=== PATIENT | female | born 1940 | race Caucasian/White ===

== ENCOUNTER 2017-04-05 12:56 | Inpatient (IN) | payer MEDICARE, MEDICAID ==
[2017-04-05] MEDS ORDERED: Sodium Chloride 0.9% 1,000 ML IV SCH ×3 (13:45→16:15)
--- NOTE | 2017-04-05 13:54 | EDM.PDOC ---
ED HPI GENERAL MEDICAL PROBLEM - General Chief Complaint: Respiratory Problem Stated Complaint: MEDICAL VIA [facility] Time Seen by Provider: 04/05/17 13:00 Source of Information: Reports: EMS Notes Reviewed, Family History Limitations: Reports: No Limitations - History of Present Illness INITIAL COMMENTS - FREE TEXT/NARRATIVE: pt arrived unresponsive from [facility]. She has had chest congestion for the past 10 days. Onset: Gradual, Other ( Pt has had a fever for several days. ) Location: Reports: Chest Associated Symptoms: Reports: Fever/Chills, Other (pt has become unresponsive.) - Related Data Allergies Allergy/AdvReac Type Severity Reaction Status Date / Time exenatide [From By[place]] AdvReac Nausea and Verified 04/05/17 19:08 Vomiting Home Meds: Home Meds Aspirin [Halfprin] 81 mg PO DAILY 04/10/13 [History] Furosemide 40 mg PO BID 04/10/13 [History] Insulin Glargine,Hum.Rec.Anlog [Lantus] 14 units SQ BEDTIME 04/10/13 [History] Potassium Chloride 10 meq PO DAILY 04/10/13 [History] Pregabalin [Lyrica] 75 mg PO BID 04/10/13 [History] Raloxifene HCl [Evista] 60 mg PO DAILY 04/10/13 [History] atorvaSTATin [Lipitor] 20 mg PO BEDTIME 04/10/13 [History] metFORMIN [Glucophage] 500 mg PO TIDM 04/10/13 [History] Metoprolol Tartrate 12.5 mg PO BID 09/20/13 [History] Acetaminophen with Codeine [Tylenol with Codeine #3 Tablet] 1 tab PO BEDTIME [History] Allopurinol [Zyloprim] 300 mg PO DAILY 04/05/17 [History] Cholecalciferol (Vitamin D3) [Vitamin D3] 1,000 units PO BID 04/05/17 [History] Ciprofloxacin HCl [Cipro] 500 mg PO BID 04/05/17 [History] DULoxetine HCl [Duloxetine HCl] 60 mg PO BEDTIME 04/05/17 [History] Polyethylene Glycol 3350 [MiraLAX] 8.5 gm PO DAILY 04/05/17 [History] Ranitidine [Zantac] 150 mg PO BID 04/05/17 [History] fentaNYL [Duragesic] 25 mcg TOP Q72H 04/05/17 [History] Past Medical History HEENT History: Reports: Impaired Vision Cardiovascular History: Reports: Heart Valve Replacement, High Cholesterol, Hypertension Musculoskeletal History: Reports: Arthritis, Back Pain, Chronic Neurological History: Reports: CVA Psychiatric History: Reports: Depression Endocrine/Metabolic History: Reports: Diabetes, Type II - Past Surgical History GI Surgical History: Reports: Appendectomy, Cholecystectomy Social & Family History - Family History HEENT: Reports: Impaired Vision Cardiac: Reports: Bypass, Hypertension, [place] : Reports: Diabetic Nephropathy OBGYN: Reports: Musculoskeletal: Reports: Back pain, Chronic Neurological: Reports: Dementia Endocrine/Metabolic: Reports: Diabetes, type II - Tobacco Use Smoking Status *Q: Never Smoker Years of Tobacco use: 12 Packs/Tins Daily: 0.5 Used Tobacco, but Quit: Yes Month Tobacco Last Used: unknown Second Hand Smoke Exposure: No - Caffeine Use Caffeine Use: Reports: None - Alcohol Use Days Per Week of Alcohol Use: 0 - Recreational Drug Use Recreational Drug Use: No ED ROS GENERAL - Review of Systems Review Of Systems: See Below Constitutional: Reports: Fever, Chills, Other (pt became unresponsive. ) HEENT: Reports: Other (mucous membranes are very dry. ) Respiratory: Reports: Cough, Other ( congestion) Cardiovascular: Reports: No Symptoms Endocrine: Reports: No Symptoms GI/Abdominal: Reports: No Symptoms : Reports: No Symptoms Musculoskeletal: Reports: No Symptoms Skin: Reports: No Symptoms Neurological: Reports: Other (pt i not responding. ) Psychiatric: Reports: Other (pt is unresponsive.) Hematologic/Lymphatic: Reports: No Symptoms ED EXAM, GENERAL - Physical Exam Exam: See Below Free Text/Narrative:: pupils are small and slow to react. she will open her eyes but she does not respond otherwise. Exam Limited By: No Limitations General Appearance: Obtunded Ears: Normal TMs Nose: Normal Inspection Throat/Mouth: Normal Inspection Head: Atraumatic Neck: Normal Inspection Respiratory/Chest: Decreased Breath Sounds, Rhonchi Cardiovascular: Regular Rate, Rhythm, Tachycardia GI/Abdominal: Soft (Female) Exam: Deferred Rectal (Female) Exam: Deferred Back Exam: Normal Inspection Extremities: Other (pt has no sig edema. ) Neurological: Unresponsive Psychiatric: Other (pt is unresponsive. ) Course - Vital Signs Last Recorded V/S: Last Vital Signs Temp 35.8 C 04/08/17 07:21 Pulse 87 09/23/17 07:21 Resp 16 04/08/17 07:21 BP 147/95 H 04/08/17 07:21 Pulse Ox 98 04/08/17 07:21 - Orders/Labs/Meds Orders: Medication Orders Fentanyl (Duragesic) 25 mcg TOP Q72H [facility] Last Admin: 04/06/17 05:22 Dose: 25 mcg Levofloxacin/Dextrose 250 mg/ (Premix) 50 mls @ 50 mls/hr IV Q24H [facility] Last Admin: 04/07/17 19:35 Dose: 50 mls/hr Infusion: 04/06/17 20:46 Dose: 50 mls/hr Admin: 04/06/17 19:46 Dose: 50 mls/hr Infusion: 04/05/17 21:18 Dose: 50 mls/hr Admin: 04/05/17 20:18 Dose: 50 mls/hr Sodium Chloride (Normal Saline) 1,000 mls @ 125 mls/hr IV ASDIRECTED [facility] Last Admin: 04/08/17 04:04 Dose: 125 mls/hr Infusion: 04/08/17 02:41 Dose: 125 mls/hr Admin: 04/07/17 18:41 Dose: 125 mls/hr Infusion: 04/07/17 18:35 Dose: 125 mls/hr Admin: 04/07/17 10:35 Dose: 125 mls/hr Infusion: 04/07/17 09:31 Dose: 125 mls/hr Admin: 04/07/17 01:31 Dose: 125 mls/hr Infusion: 04/06/17 19:16 Dose: 125 mls/hr Admin: 04/06/17 11:16 Dose: 125 mls/hr Infusion: 04/06/17 09:58 Dose: 125 mls/hr Admin: 04/06/17 01:58 Dose: 125 mls/hr Ceftriaxone Sodium 1 gm/ (Sodium Chloride) 50 mls @ 100 mls/hr IV Q24H [facility] Last Admin: 04/07/17 20:30 Dose: 100 mls/hr Admin: 04/06/17 20:45 Dose: 100 mls/hr Fentanyl Patch Check 1 each TOP BID [facility] Last Admin: 04/07/17 20:30 Dose: Admin: 04/07/17 08:09 Dose: Labs: Laboratory Tests 04/05/17 04/05/17 04/05/17 Range/Units 14:11 14:20 14:20 WBC 17.3 H (4.5-11.0) K/uL RBC 4.94 (3.30-5.50) M/uL Hgb 14.6 D (12.0-15.0) g/dL Hct 46.2 (36.0-48.0) % MCV 94 (80-98) fL MCH 30 (27-31) pg MCHC 32 (32-36) % Plt Count 279 (150-400) K/uL Neut % (Auto) 60 (36-66) % Lymph % (Auto) 31 (24-44) % Worth % (Auto) 8 H (2-6) % Eos % (Auto) 0 L (2-4) % Baso % (Auto) 1 (0-1) % Puncture Site ABG pH (7.350-7.450) ABG pCO2 (35.0-42.0) mmHg ABG pO2 (75.0-100.0) mmHg ABG HCO3 (22.0-26.0) mmol/L ABG Total CO2 (21.0-25.0) mmol/L ABG O2 Saturation (95.0-98.0) % ABG O2 Content (15.0-23.0) %vol ABG Base Excess mm/L ABG Hemoglobin (12.0-16.0) g/dL ABG Oxyhemoglobin % ABG Carboxyhemoglobin (0.0-1.6) % ABG Methemoglobin % Cristiano Test O2 Delivery Device Oxygen Flow Rate L Sodium 151 H (140-148) mmol/L Potassium 3.8 (3.6-5.2) mmol/L Chloride 112 H (100-108) mmol/L Carbon Dioxide 30 (21-32) mmol/L Anion Gap 12.8 (5.0-14.0) mmol/L BUN 24 H (7-18) mg/dL Creatinine 0.7 (0.6-1.0) mg/dL Est Cr Clr Drug Dosing 52.77 mL/min Estimated GFR (MDRD) > 60 (>60) Glucose 172 H (74-106) mg/dL Lactic Acid 1.1 (0.4-2.0) mmol/L Calcium 8.7 (8.5-10.1) mg/dL Total Bilirubin 0.3 (0.2-1.0) mg/dL AST 16 (15-37) U/L ALT 20 (12-78) U/L Alkaline Phosphatase 59 (46-116) U/L Total Protein 7.8 (6.4-8.2) g/dL Albumin 3.0 L (3.4-5.0) g/dL Globulin 4.8 H (2.3-3.5) g/dL Albumin/Globulin Ratio 0.6 L (1.2-2.2) Urine Color Urine Appearance Urine pH (4.5-8.0) Ur Specific [place] (1.008-1.030) Urine Protein (NEGATIVE) mg/dL Urine Glucose (UA) (NEGATIVE) mg/dL Urine Ketones (NEGATIVE) mg/dL Urine Occult Blood (NEGATIVE) Urine Nitrite (NEGATIVE) Urine Bilirubin (NEGATIVE) Urine Urobilinogen (NORMAL) mg/dL Ur Leukocyte Esterase (NEGATIVE) Urine RBC (0-5) Urine WBC (0-5) Ur Epithelial Cells Amorphous Sediment Urine Bacteria Urine Mucus 04/05/17 04/05/17 Range/Units 14:20 15:25 WBC (4.5-11.0) K/uL RBC (3.30-5.50) M/uL Hgb (12.0-15.0) g/dL Hct (36.0-48.0) % MCV (80-98) fL MCH (27-31) pg MCHC (32-36) % Plt Count (150-400) K/uL Neut % (Auto) (36-66) % Lymph % (Auto) (24-44) % Worth % (Auto) (2-6) % Eos % (Auto) (2-4) % Baso % (Auto) (0-1) % Puncture Site Rt brachial ABG pH 7.485 H (7.350-7.450) ABG pCO2 38.3 (35.0-42.0) mmHg ABG pO2 93.5 (75.0-100.0) mmHg ABG HCO3 28.6 H (22.0-26.0) mmol/L ABG Total CO2 24.6 (21.0-25.0) mmol/L ABG O2 Saturation 97.5 (95.0-98.0) % ABG O2 Content 19.3 (15.0-23.0) %vol ABG Base Excess 5.3 mm/L ABG Hemoglobin 14.3 (12.0-16.0) g/dL ABG Oxyhemoglobin 95.6 % ABG Carboxyhemoglobin 1.5 (0.0-1.6) % ABG Methemoglobin 0.4 % Cristiano Test Not performed O2 Delivery Device Nasal cannula Oxygen Flow Rate 2 L Sodium (140-148) mmol/L Potassium (3.6-5.2) mmol/L Chloride (100-108) mmol/L Carbon Dioxide (21-32) mmol/L Anion Gap (5.0-14.0) mmol/L BUN (7-18) mg/dL Creatinine (0.6-1.0) mg/dL Est Cr Clr Drug Dosing mL/min Estimated GFR (MDRD) (>60) Glucose (74-106) mg/dL Lactic Acid (0.4-2.0) mmol/L Calcium (8.5-10.1) mg/dL Total Bilirubin (0.2-1.0) mg/dL AST (15-37) U/L ALT (12-78) U/L Alkaline Phosphatase (46-116) U/L Total Protein (6.4-8.2) g/dL Albumin (3.4-5.0) g/dL Globulin (2.3-3.5) g/dL Albumin/Globulin Ratio (1.2-2.2) Urine Color Yellow Urine Appearance Clear Urine pH 5.0 (4.5-8.0) Ur Specific [place] 1.020 (1.008-1.030) Urine Protein Negative (NEGATIVE) mg/dL Urine Glucose (UA) Normal (NEGATIVE) mg/dL Urine Ketones Negative (NEGATIVE) mg/dL Urine Occult Blood Large (NEGATIVE) Urine Nitrite Negative (NEGATIVE) Urine Bilirubin Negative (NEGATIVE) Urine Urobilinogen Normal (NORMAL) mg/dL Ur Leukocyte Esterase Negative (NEGATIVE) Urine RBC 20-30 H (0-5) Urine WBC 0-5 (0-5) Ur Epithelial Cells Few Amorphous Sediment Not seen Urine Bacteria Few Urine Mucus Numerous Meds: Medications Generic Name Dose Route Start Last Admin Trade Name Freq PRN Reason Stop Dose Admin Fentanyl 25 mcg 04/06/17 04:00 04/06/17 05:22 Duragesic TOP 25 mcg Q72H ISHMAEL Administration Levofloxacin/Dextrose 250 mg/ 50 mls @ 50 mls/hr 04/05/17 20:00 04/07/17 19: 35 Premix IV 50 mls/hr Q24H ISHMAEL Administration Sodium Chloride 1,000 mls @ 125 mls/hr 04/05/17 20:15 04/08/17 04:04 Normal Saline IV 125 mls/hr ASDIRECTED ISHMAEL Administration Ceftriaxone Sodium 1 gm/ 50 mls @ 100 mls/hr 04/06/17 21:00 04/07/17 20:30 Sodium Chloride IV 100 mls/hr Q24H ISHMAEL Administration Fentanyl Patch Check 1 each 04/07/17 09:00 04/07/17 20:30 TOP Not Given BID ISHMAEL Discontinued Medications Generic Name Dose Route Start Last Admin Trade Name Freq PRN Reason Stop Dose Admin Acetaminophen/Codeine Phosphate 1 tab 04/05/17 21:00 04/06/17 01:12 Tylenol With Codeine No.3 300mg/30mg PO Not Given BEDTIME [facility] Allopurinol 300 mg 04/06/17 09:00 04/06/17 11:17 Zyloprim PO Not Given DAILY [facility] Aspirin 81 mg 04/06/17 09:00 04/06/17 11:16 Halfprin PO Not Given DAILY [facility] Atorvastatin Calcium 20 mg 04/05/17 21:00 04/06/17 00:45 Lipitor PO Not Given BEDTIME [facility]HMAEL Ceftriaxone Sodium 1 gm 04/05/17 19:30 04/05/17 20:55 Rocephin IM Not Given Q24H [facility] Ceftriaxone Sodium 1 gm 04/05/17 21:00 04/05/17 21:24 Rocephin IV 1 gm Q24H [facility] Administration Cholecalciferol 1,000 units 04/05/17 21:00 04/06/17 11:17 Vitamin D3 PO Not Given BID [facility] Duloxetine HCl 60 mg 04/06/17 21:00 Cymbalta PO BEDTIME [facility]MAEL Sodium Chloride 1,000 mls @ 125 mls/hr 04/05/17 13:45 04/05/17 14:14 Normal Saline IV 999 mls/hr ASDIRECTED [facility]HMA[facility] Administration Sodium Chloride 1,000 mls @ 400 mls/hr 04/05/17 15:15 04/05/17 15:36 Normal Saline IV 400 mls/hr ASDIRECTED [facility]HMA[facility] Administration Sodium Chloride 1,000 mls @ 250 mls/hr 04/05/17 16:15 04/05/17 18:09 Normal Saline IV 250 mls/hr ASDIRECTED [facility] Administration Sodium Chloride Confirm 04/05/17 21:13 04/05/17 21:26 Normal Saline Administered 04/05/17 21:14 50 ml Dose Administration 50 mls @ as directed .ROUTE .STK-MED ONE Potassium Chloride 20 meq/ 112 mls @ 50 mls/hr 04/06/17 10:00 04/06/17 16:50 Lidocaine HCl 2 ml/ Sodium IV 04/06/17 15:59 50 mls/hr Chloride Q2H [facility] Administration Insulin Detemir 14 unit 04/05/17 21:00 04/06/17 00:43 Levemir SUBCUT 14 units BEDTIME [facility] Administration Insulin Detemir 14 unit 04/06/17 07:15 Levemir SUBCUT BEDTIME [facility] Metformin HCl 500 mg 04/06/17 08:00 04/06/17 17:52 Glucophage PO Not Given TIDMEALS [facility] Metoprolol Tartrate 12.5 mg 04/05/17 21:00 04/06/17 11:16 Lopressor PO Not Given BID [facility] Fentanyl Patch Check 1 each 04/06/17 09:00 04/06/17 09:18 TOP Not Given BID [facility] Polyethylene Glycol 8.5 gm 04/06/17 09:00 04/06/17 11:17 Miralax PO Not Given DAILY [facility] Potassium Chloride 10 meq 04/06/17 09:00 04/06/17 11:17 Potassium Chloride PO Not Given DAILY [facility] Pregabalin 75 mg 04/05/17 21:00 04/06/17 11:17 Lyrica PO Not Given BID [facility] Raloxifene HCl 60 mg 04/06/17 09:00 04/06/17 11:16 Evista PO Not Given DAILY [facility] Ranitidine HCl 150 mg 04/05/17 21:00 04/06/17 11:17 Zantac PO Not Given BID [facility] - Re-Assessments/Exams Free Text/Narrative Re-Assessment/Exam: 04/05/17 15:58 pt is on her second liter of fluid. She is opening her eyes. Her na is 151. Her urine does not show a definite infection. She does have a wbc of 17,000. She has had a chest infection for the pst 10 days and has been on antibiotics. Departure - Departure Time of Disposition: 16:01 Disposition: Admitted As Inpatient 65 Condition: Fair Clinical Impression: Pneumonia, Hypernatremia, Dehydration - Discharge Information
--- NOTE | 2017-04-05 14:49 | CR ---
Chest 1V Frontal INDICATION: fever FINDINGS: Comparison 04/10/2013. Shallow inspiration. Sternotomy. Cardiac valve replacement. New small left pleural effusion with infiltrate or atelectasis in the left lung base. Right lung clear. Diffus e osteopenia.
--- NOTE | 2017-04-05 17:53 | PCM.HP ---
H&P History of Present Illness - General Date of Service: 04/05/17 Source of Information: EMS, Skilled Nursing Records History Limitations: Reports: Altered Mental Status - History of Present Illness Initial Comments - Free Text/Narative: She has been in the [facility] and had bronchitis and given Cipro for 1 week. She has had no improvement and came into the ER this afternoon and was called for an admission. She has been bed ridden for many months. Onset of Symptoms: Reports: Gradual Duration of Symptoms: Reports: Day(s): Location: Reports: Chest Severity: Moderate Worsens with: Reports: Movement - Related Data Allergies/Adverse Reactions: Allergies Allergy/AdvReac Type Severity Reaction Status Date / Time exenatide [From Byetta] AdvReac Nausea and Verified 04/05/17 13:35 Vomiting Home Medications: Home Meds Aspirin [Halfprin] 81 mg PO DAILY 04/10/13 [History] Furosemide 40 mg PO BID 04/10/13 [History] Insulin Glargine,Hum.Rec.Anlog [Lantus] 14 units SQ BEDTIME 04/10/13 [History] Potassium Chloride 10 meq PO DAILY 04/10/13 [History] Pregabalin [Lyrica] 75 mg PO BID 04/10/13 [History] Raloxifene HCl [Evista] 60 mg PO DAILY 04/10/13 [History] atorvaSTATin [Lipitor] 20 mg PO BEDTIME 04/10/13 [History] metFORMIN [Glucophage] 500 mg PO TIDM 04/10/13 [History] Metoprolol Tartrate 12.5 mg PO BID 09/20/13 [History] Acetaminophen with Codeine [Tylenol with Codeine #3 Tablet] 1 tab PO BEDTIME [History] Allopurinol [Zyloprim] 300 mg PO DAILY 04/05/17 [History] Cholecalciferol (Vitamin D3) [Vitamin D3] 1,000 units PO BID 04/05/17 [History] Ciprofloxacin HCl [Cipro] 500 mg PO BID 04/05/17 [History] DULoxetine HCl [Duloxetine HCl] 60 mg PO BEDTIME 04/05/17 [History] Polyethylene Glycol 3350 [MiraLAX] 8.5 gm PO DAILY 04/05/17 [History] Ranitidine [Zantac] 150 mg PO BID 04/05/17 [History] fentaNYL [Duragesic] 25 mcg TOP Q72H 04/05/17 [History] Past Medical History HEENT History: Reports: Impaired Vision Cardiovascular History: Reports: Heart Valve Replacement, High Cholesterol, Hypertension Musculoskeletal History: Reports: Arthritis, Back Pain, Chronic, Osteoarthritis Neurological History: Reports: CVA Psychiatric History: Reports: Dementia, Depression Endocrine/Metabolic History: Reports: Diabetes, Type II, Obesity/BMI 30+ - Past Surgical History GI Surgical History: Reports: Appendectomy, Cholecystectomy Social & Family History - Family History HEENT: Reports: Impaired Vision Cardiac: Reports: Bypass, Hypertension, [place] : Reports: Diabetic Nephropathy OBGYN: Reports: Musculoskeletal: Reports: Back pain, Chronic Neurological: Reports: Dementia Endocrine/Metabolic: Reports: Diabetes, type II - Tobacco Use Smoking Status *Q: Never Smoker Years of Tobacco use: 12 Packs/Tins Daily: 0.5 Used Tobacco, but Quit: Yes Month Tobacco Last Used: unknown Second Hand Smoke Exposure: No - Caffeine Use Caffeine Use: Reports: None - Alcohol Use Days Per Week of Alcohol Use: 0 - Recreational Drug Use Recreational Drug Use: No H&P Review of Systems - Review of Systems: Review Of Systems: See Below General: Reports: Weakness Pulmonary: Reports: Cough Psychiatric: Reports: Other (minimual verbal response) Exam - Exam Exam: See Below - Vital Signs Vital Signs: Last Vital Signs Temp 99.7 F 04/05/17 12:59 Pulse 98 04/05/17 17:19 Resp 24 H 04/05/17 13:23 BP 129/83 04/05/17 17:19 Pulse Ox 97 04/05/17 17:19 Weight: 194 lb - Exam General: Moderate Distress, Lethargic HEENT: PERRLA, Conjunctiva Clear, EOMI Neck: Supple Lungs: Rhonchi Cardiovascular: Regular Rate, Regular Rhythm Extremities: Normal Inspection Peripheral Pulses: 1+: Radial (L), Radial (R) Skin: Warm, Dry, Intact Neuro Extensive - Mental Status: Inattentive Psychiatric: Other (obtunded) - Patient Data Lab Results Last 24 hrs: Laboratory Results - last 24 hr 04/05/17 04/05/17 04/05/17 Range/Units 14:11 14:20 14:20 WBC 17.3 H (4.5-11.0) K/uL RBC 4.94 (3.30-5.50) M/uL Hgb 14.6 D (12.0-15.0) g/dL Hct 46.2 (36.0-48.0) % MCV 94 (80-98) fL MCH 30 (27-31) pg MCHC 32 (32-36) % Plt Count 279 (150-400) K/uL Neut % (Auto) 60 (36-66) % Lymph % (Auto) 31 (24-44) % [place] % (Auto) 8 H (2-6) % Eos % (Auto) 0 L (2-4) % Baso % (Auto) 1 (0-1) % Puncture Site ABG pH (7.350-7.450) ABG pCO2 (35.0-42.0) mmHg ABG pO2 (75.0-100.0) mmHg ABG HCO3 (22.0-26.0) mmol/L ABG Total CO2 (21.0-25.0) mmol/L ABG O2 Saturation (95.0-98.0) % ABG O2 Content (15.0-23.0) %vol ABG Base Excess mm/L ABG Hemoglobin (12.0-16.0) g/dL ABG Oxyhemoglobin % ABG Carboxyhemoglobin (0.0-1.6) % ABG Methemoglobin % Cristiano Test O2 Delivery Device Oxygen Flow Rate L Sodium 151 H (140-148) mmol/L Potassium 3.8 (3.6-5.2) mmol/L Chloride 112 H (100-108) mmol/L Carbon Dioxide 30 (21-32) mmol/L Anion Gap 12.8 (5.0-14.0) mmol/L BUN 24 H (7-18) mg/dL Creatinine 0.7 (0.6-1.0) mg/dL Est Cr Clr Drug Dosing 52.77 mL/min Estimated GFR (MDRD) > 60 (>60) Glucose 172 H (74-106) mg/dL Lactic Acid 1.1 (0.4-2.0) mmol/L Calcium 8.7 (8.5-10.1) mg/dL Total Bilirubin 0.3 (0.2-1.0) mg/dL AST 16 (15-37) U/L ALT 20 (12-78) U/L Alkaline Phosphatase 59 (46-116) U/L Total Protein 7.8 (6.4-8.2) g/dL Albumin 3.0 L (3.4-5.0) g/dL Globulin 4.8 H (2.3-3.5) g/dL Albumin/Globulin Ratio 0.6 L (1.2-2.2) Urine Color Urine Appearance Urine pH (4.5-8.0) Ur Specific [place] (1.008-1.030) Urine Protein (NEGATIVE) mg/dL Urine Glucose (UA) (NEGATIVE) mg/dL Urine Ketones (NEGATIVE) mg/dL Urine Occult Blood (NEGATIVE) Urine Nitrite (NEGATIVE) Urine Bilirubin (NEGATIVE) Urine Urobilinogen (NORMAL) mg/dL Ur Leukocyte Esterase (NEGATIVE) Urine RBC (0-5) Urine WBC (0-5) Ur Epithelial Cells Amorphous Sediment Urine Bacteria Urine Mucus 04/05/17 04/05/17 Range/Units 14:20 15:25 WBC (4.5-11.0) K/uL RBC (3.30-5.50) M/uL Hgb (12.0-15.0) g/dL Hct (36.0-48.0) % MCV (80-98) fL MCH (27-31) pg MCHC (32-36) % Plt Count (150-400) K/uL Neut % (Auto) (36-66) % Lymph % (Auto) (24-44) % [place] % (Auto) (2-6) % Eos % (Auto) (2-4) % Baso % (Auto) (0-1) % Puncture Site Rt brachial ABG pH 7.485 H (7.350-7.450) ABG pCO2 38.3 (35.0-42.0) mmHg ABG pO2 93.5 (75.0-100.0) mmHg ABG HCO3 28.6 H (22.0-26.0) mmol/L ABG Total CO2 24.6 (21.0-25.0) mmol/L ABG O2 Saturation 97.5 (95.0-98.0) % ABG O2 Content 19.3 (15.0-23.0) %vol ABG Base Excess 5.3 mm/L ABG Hemoglobin 14.3 (12.0-16.0) g/dL ABG Oxyhemoglobin 95.6 % ABG Carboxyhemoglobin 1.5 (0.0-1.6) % ABG Methemoglobin 0.4 % Cristiano Test Not performed O2 Delivery Device Nasal cannula Oxygen Flow Rate 2 L Sodium (140-148) mmol/L Potassium (3.6-5.2) mmol/L Chloride (100-108) mmol/L Carbon Dioxide (21-32) mmol/L Anion Gap (5.0-14.0) mmol/L BUN (7-18) mg/dL Creatinine (0.6-1.0) mg/dL Est Cr Clr Drug Dosing mL/min Estimated GFR (MDRD) (>60) Glucose (74-106) mg/dL Lactic Acid (0.4-2.0) mmol/L Calcium (8.5-10.1) mg/dL Total Bilirubin (0.2-1.0) mg/dL AST (15-37) U/L ALT (12-78) U/L Alkaline Phosphatase (46-116) U/L Total Protein (6.4-8.2) g/dL Albumin (3.4-5.0) g/dL Globulin (2.3-3.5) g/dL Albumin/Globulin Ratio (1.2-2.2) Urine Color Yellow Urine Appearance Clear Urine pH 5.0 (4.5-8.0) Ur Specific [place] 1.020 (1.008-1.030) Urine Protein Negative (NEGATIVE) mg/dL Urine Glucose (UA) Normal (NEGATIVE) mg/dL Urine Ketones Negative (NEGATIVE) mg/dL Urine Occult Blood Large (NEGATIVE) Urine Nitrite Negative (NEGATIVE) Urine Bilirubin Negative (NEGATIVE) Urine Urobilinogen Normal (NORMAL) mg/dL Ur Leukocyte Esterase Negative (NEGATIVE) Urine RBC 20-30 H (0-5) Urine WBC 0-5 (0-5) Ur Epithelial Cells Few Amorphous Sediment Not seen Urine Bacteria Few Urine Mucus Numerous Result Diagrams: 04/05/17 14:11 04/05/17 14:20 *Q Meaningful Use (ADM) - VTE *Q VTE Criteria *Q: - Stroke *Q Stroke Criteria *Q: - AMI *Q AMI Criteria *Q: Problem List Initiated/Reviewed/Updated: Yes Orders Last 24hrs: Active Orders 24 hr Category Date Time Status Petit Catheter Insertion [Insert Urinary Catheter] [OM. Care 04/05/17 16:00 Ordered PC] Q24H Urinary Catheter Assessment [RC] ASDIRECTED Care 04/05/17 15:54 Active CULTURE BLOOD [BC] Urgent Lab 04/05/17 13:42 Ordered CULTURE BLOOD [BC] Urgent Lab 04/05/17 14:11 Received CULTURE URINE [RM] Stat Lab 04/05/17 16:00 Received Sodium Chloride 0.9% [Normal Saline] 1,000 ml Med 04/05/17 13:45 Active IV ASDIRECTED Sodium Chloride 0.9% [Normal Saline] 1,000 ml Med 04/05/17 15:15 Active IV ASDIRECTED Sodium Chloride 0.9% [Normal Saline] 1,000 ml Med 04/05/17 16:15 Active IV ASDIRECTED Blood Culture x2 Reflex Set [OM.PC] Urgent Oth 04/05/17 13:42 Ordered Medication Orders Sodium Chloride (Normal Saline) 1,000 mls @ 999 mls/hr IV ASDIRECTED [facility] Last Admin: 04/05/17 14:14 Dose: 999 mls/hr Sodium Chloride (Normal Saline) 1,000 mls @ 400 mls/hr IV ASDIRECTED [facility] Last Admin: 04/05/17 15:36 Dose: 400 mls/hr Sodium Chloride (Normal Saline) 1,000 mls @ 250 mls/hr IV ASDIRECTED [facility] Assessment/Plan Comment:: Assessment/Plan: Bronchitis, Acute: Will begin Rocephin and Levaquin. #2. DM II. Continue with the same meds and follow blood sugars.. Insulin glargine and Metformin #3. History of Hypertension: Continue with Metoprolol Tartrate #4. Dehydration: Will rehydrate with fluid and correct the elevated NA #5. History of HLD: Continue with Atorvastatin #6. History of GERD: continue with Pepsid #7. History of contractures: #8. History of dementia: stable but progressive. #9. History of ruptured aortic aneurysm. sTABLE #10. History of Nonrheumatic Aortic Valve stenosis. #11. History of chronic pain syndrome. Continue with Fentanyl Patch #12. History of Depression. Continue with Duloxetine #13. History of gout: Continue with Allopurinol
[2017-04-05] MEDS ORDERED: cefTRIAXone 1 GM Vial IM SCH (19:30)
[2017-04-05] MEDS: Levofloxacin/Dextrose 5%-Water 250 MG in Premix Bag 1 BAG IV SCH (20:18)
[2017-04-05] MEDS ORDERED: Acetaminophen/Codeine 300-30 MG Tab PO SCH (21:00)
[2017-04-05] MEDS ORDERED: atorvaSTATin 20 MG Tab PO SCH (21:00)
[2017-04-05] MEDS ORDERED: Insulin Detemir 100 Units/ML 3 ML Pen SUBCUT SCH (21:00)
[2017-04-05] MEDS ORDERED: cefTRIAXone 1 GM Vial IV SCH (21:00)
[2017-04-05] MEDS ORDERED: Sodium Chloride 0.9% 50 ML ONE (21:13)
[2017-04-06] MEDS: Metoprolol Tartrate 25 MG Tab PO SCH ×2 (00:45→11:16)
[2017-04-06] MEDS: Cholecalciferol (Vitamin D3) 1,000 Unit Tab PO SCH ×2 (01:12→11:17)
[2017-04-06] MEDS: Pregabalin 75 MG Cap PO SCH ×2 (01:12→11:17)
[2017-04-06] MEDS: Sodium Chloride 0.9% 1,000 ML IV SCH ×2 (01:58→11:16)
[2017-04-06] MEDS: fentaNYL 25 MCG/HR Transdermal Patch TOP SCH (05:22)
[2017-04-06] MEDS ORDERED: Insulin Detemir 100 Units/ML 3 ML Pen SUBCUT SCH (07:15)
[2017-04-06] MEDS ORDERED: Potassium Chloride 10 MEQ Cap.ER PO SCH (09:00)
[2017-04-06] MEDS ORDERED: FENTANYL PATCH CHECK TOP SCH (09:00)
[2017-04-06] MEDS ORDERED: Polyethylene Glycol 3350 Powder 17 GM Packet PO SCH (09:00)
[2017-04-06] MEDS ORDERED: Aspirin 81 MG Tab.EC PO SCH (09:00)
[2017-04-06] MEDS ORDERED: Raloxifene 60 MG Tab PO SCH (09:00)
[2017-04-06] MEDS ORDERED: Allopurinol 300 MG Tab PO SCH (09:00)
[2017-04-06] MEDS: metFORMIN 500 MG Tab PO SCH ×3 (11:16→17:52)
[2017-04-06] MEDS: Potassium Chloride 20 MEQ, Lidocaine 1% 2 ML in Sodium Chloride 0.9% 100 ML IV SCH ×3 (11:16→16:50)
--- NOTE | 2017-04-06 18:18 | PCM.PN ---
- General Info Date of Service: 04/06/17 Admission Dx/Problem (Free Text): She is not verbal and unable to eat or swallow. - Patient Data Vitals - Most Recent: Last Vital Signs Temp 98.1 F 04/06/17 14:34 Pulse 97 04/06/17 14:34 Resp 18 04/06/17 14:34 BP 143/73 H 04/06/17 14:34 Pulse Ox 93 L 04/06/17 14:34 Weight - Most Recent: 194 lb 0.003 oz I&O - Last 24 Hours: Intake & Output 04/06/17 04/06/17 04/06/17 06:59 14:59 22:59 Intake Total 9638 920 2525 Output Total 500 900 Balance 606 112 644 Lab Results Last 24 Hours: Laboratory Results - last 24 hr 04/06/17 04/06/17 Range/Units 05:42 05:42 WBC 14.0 H (4.5-11.0) K/uL RBC 4.20 (3.30-5.50) M/uL Hgb 12.6 D (12.0-15.0) g/dL Hct 39.4 (36.0-48.0) % MCV 94 (80-98) fL MCH 30 (27-31) pg MCHC 32 (32-36) % Plt Count 186 (150-400) K/uL Neut % (Auto) 61 (36-66) % Lymph % (Auto) 30 (24-44) % [place] % (Auto) 8 H (2-6) % Eos % (Auto) 1 L (2-4) % Baso % (Auto) 1 (0-1) % Sodium 152 H (140-148) mmol/L Potassium 3.1 L (3.6-5.2) mmol/L Chloride 116 H (100-108) mmol/L Carbon Dioxide 26 (21-32) mmol/L Anion Gap 13.1 (5.0-14.0) mmol/L BUN 17 (7-18) mg/dL Creatinine 0.4 L (0.6-1.0) mg/dL Est Cr Clr Drug Dosing 92.35 mL/min Estimated GFR (MDRD) > 60 (>60) Glucose 150 H (74-106) mg/dL Calcium 7.9 L (8.5-10.1) mg/dL Med Orders - Current: Current Medications Acetaminophen/Codeine Phosphate (Tylenol With Codeine No.3 300mg/30mg) 1 tab PO BEDTIME [facility] Last Admin: 04/06/17 01:12 Dose: Not Given Allopurinol (Zyloprim) 300 mg PO DAILY [facility] Last Admin: 04/06/17 11:17 Dose: Not Given Aspirin (Halfprin) 81 mg PO DAILY [facility] Last Admin: 04/06/17 11:16 Dose: Not Given Atorvastatin Calcium (Lipitor) 20 mg PO BEDTIME [facility] Last Admin: 04/06/17 00:45 Dose: Not Given Cholecalciferol (Vitamin D3) 1,000 units PO BID [facility] Last Admin: 04/06/17 11:17 Dose: Not Given Duloxetine HCl (Cymbalta) 60 mg PO BEDTIME [facility] Fentanyl (Duragesic) 25 mcg TOP Q72H [facility] Last Admin: 04/06/17 05:22 Dose: 25 mcg Levofloxacin/Dextrose 250 mg/ (Premix) 50 mls @ 50 mls/hr IV Q24H [facility] Last Admin: 04/05/17 20:18 Dose: 50 mls/hr Sodium Chloride (Normal Saline) 1,000 mls @ 125 mls/hr IV ASDIRECTED [facility] Last Admin: 04/06/17 11:16 Dose: 125 mls/hr Ceftriaxone Sodium 1 gm/ (Sodium Chloride) 50 mls @ 100 mls/hr IV Q24H [facility] Insulin Detemir (Levemir) 14 unit SUBCUT BEDTIME [facility] Metformin HCl (Glucophage) 500 mg PO TIDMEALS [facility] Last Admin: 04/06/17 17:52 Dose: Not Given Metoprolol Tartrate (Lopressor) 12.5 mg PO BID [facility] Last Admin: 04/06/17 11:16 Dose: Not Given Fentanyl Patch Check 1 each TOP BID [facility] Last Admin: 04/06/17 09:18 Dose: Not Given Polyethylene Glycol (Miralax) 8.5 gm PO DAILY [facility] Last Admin: 04/06/17 11:17 Dose: Not Given Potassium Chloride (Potassium Chloride) 10 meq PO DAILY [facility] Last Admin: 04/06/17 11:17 Dose: Not Given Pregabalin (Lyrica) 75 mg PO BID [facility] Last Admin: 04/06/17 11:17 Dose: Not Given Raloxifene HCl (Evista) 60 mg PO DAILY [facility] Last Admin: 04/06/17 11:16 Dose: Not Given Ranitidine HCl (Zantac) 150 mg PO BID [facility] Last Admin: 04/06/17 11:17 Dose: Not Given Discontinued Medications Ceftriaxone Sodium (Rocephin) 1 gm IM Q24H [facility] Last Admin: 04/05/17 20:55 Dose: Not Given Ceftriaxone Sodium (Rocephin) 1 gm IV Q24H [facility] Last Admin: 04/05/17 21:24 Dose: 1 gm Sodium Chloride (Normal Saline) 1,000 mls @ 125 mls/hr IV ASDIRECTED [facility] Last Admin: 04/05/17 14:14 Dose: 999 mls/hr Sodium Chloride (Normal Saline) 1,000 mls @ 400 mls/hr IV ASDIRECTED [facility] Last Admin: 04/05/17 15:36 Dose: 400 mls/hr Sodium Chloride (Normal Saline) 1,000 mls @ 250 mls/hr IV ASDIRECTED [facility] Last Admin: 04/05/17 18:09 Dose: 250 mls/hr Sodium Chloride (Normal Saline) Confirm Administered Dose 50 mls @ as directed .ROUTE .STK-MED ONE Stop: 04/05/17 21:14 Last Admin: 04/05/17 21:26 Dose: 50 ml Potassium Chloride 20 meq/Lidocaine HCl 2 ml/ Sodium Chloride 112 mls @ 50 mls/ hr IV Q2H [facility] Stop: 04/06/17 15:59 Last Admin: 04/06/17 16:50 Dose: 50 mls/hr Insulin Detemir (Levemir) 14 unit SUBCUT BEDTIME [facility] Last Admin: 04/06/17 00:43 Dose: 14 units - Exam Lungs: Clear to Auscultation Cardiovascular: Regular Rate Extremities: Pedal Edema - Problem List Review Problem List Initiated/Reviewed/Updated: Yes - My Orders Last 24 Hours: My Active Orders 04/05/17 20:00 Levofloxacin/Dextrose 5%-Water [Levaquin in D5W 250 MG/50 ML] 250 mg Premix Bag 1 bag IV Q24H 04/05/17 20:15 Sodium Chloride 0.9% [Normal Saline] 1,000 ml IV ASDIRECTED 04/05/17 21:00 Acetaminophen/Codeine [Tylenol with Codeine No.3 300MG/30MG] 1 tab PO BEDTIME Cholecalciferol (Vitamin D3) [Vitamin D3] 1,000 units PO BID Metoprolol Tartrate [Lopressor] 12.5 mg PO BID Pregabalin [Lyrica] 75 mg PO BID Ranitidine [Zantac] 150 mg PO BID atorvaSTATin [Lipitor] 20 mg PO BEDTIME 04/06/17 04:00 fentaNYL [Duragesic] 25 mcg TOP Q72H 04/06/17 07:15 Insulin Detemir [Levemir] 14 unit SUBCUT BEDTIME 04/06/17 08:00 metFORMIN [Glucophage] 500 mg PO TIDMEALS 04/06/17 09:00 Allopurinol [Zyloprim] 300 mg PO DAILY Aspirin [Halfprin] 81 mg PO DAILY Non-Formulary Medication [NF Drug] 1 each TOP BID Polyethylene Glycol 3350 [MiraLAX] 8.5 gm PO DAILY Potassium Chloride 10 meq PO DAILY Raloxifene [Evista] 60 mg PO DAILY 04/06/17 14:13 SCD [Sequential Compression Device] [OM.PC] Routine 04/06/17 21:00 GLUCOSE POC LAB TO COLLECT [POC] QIDACANDBED DULoxetine [Cymbalta] 60 mg PO BEDTIME cefTRIAXone [Rocephin] 1 gm Sodium Chloride 0.9% [Normal Saline] 50 ml IV Q24H - Plan Plan:: Assessment/Plan: Bronchitis, Acute: Will hold Rocephin and Levaquin tomorrow. #2. DM II. Blood sugars have been good control not taking meds #3. History of Hypertension: 140's systolic #4. Dehydration: resolving. #5. History of HLD: Will hold Atorvastatin #6. History of GERD: Will DC Pepsid #7. History of contractures: #8. History of dementia: stable but progressive. #9. History of ruptured aortic aneurysm. STABLE #10. History of Nonrheumatic Aortic Valve stenosis. #11. History of chronic pain syndrome. Continue with Fentanyl Patch #12. History of Depression. Will DC Duloxetine #13. History of gout: Will DC Allopurinol I have called the family and waiting for direction on what their wishes are for care. If they want to be aggressive a feeding tube will be needed as she is not getting nutrition and unable to swallow.
[2017-04-06] MEDS: Levofloxacin/Dextrose 5%-Water 250 MG in Premix Bag 1 BAG IV SCH (19:46)
[2017-04-06] MEDS: cefTRIAXone 1 GM in Sodium Chloride 0.9% 50 ML IV SCH (20:45)
[2017-04-06] MEDS ORDERED: DULoxetine 30 MG Cap PO SCH (21:00)
[2017-04-07] MEDS: Sodium Chloride 0.9% 1,000 ML IV SCH ×3 (01:31→18:41)
[2017-04-07] MEDS: FENTANYL PATCH CHECK TOP SCH ×2 (08:09→20:30)
--- NOTE | 2017-04-07 13:00 | PCM.PN ---
- General Info Date of Service: 04/07/17 Functional Status: Reports: Pain Controlled - Review of Systems General: Reports: Weakness HEENT: Reports: No Symptoms Pulmonary: Reports: No Symptoms Cardiovascular: Reports: No Symptoms Gastrointestinal: Reports: No Symptoms Psychiatric: Reports: Other (No verbal communication) - Patient Data Vitals - Most Recent: Last Vital Signs Temp 98.1 F 04/07/17 11:00 Pulse 94 04/07/17 11:00 Resp 18 04/07/17 11:00 BP 134/62 04/07/17 11:00 Pulse Ox 96 04/07/17 11:00 Weight - Most Recent: 194 lb 0.003 oz I&O - Last 24 Hours: Intake & Output 04/06/17 04/07/17 04/07/17 22:59 06:59 14:59 Intake Total 1544 1580 Output Total 900 1000 Balance 644 580 Med Orders - Current: Current Medications Fentanyl (Duragesic) 25 mcg TOP Q72H [facility] Last Admin: 04/06/17 05:22 Dose: 25 mcg Levofloxacin/Dextrose 250 mg/ (Premix) 50 mls @ 50 mls/hr IV Q24H [facility] Last Admin: 04/06/17 19:46 Dose: 50 mls/hr Sodium Chloride (Normal Saline) 1,000 mls @ 125 mls/hr IV ASDIRECTED [facility] Last Admin: 04/07/17 10:35 Dose: 125 mls/hr Ceftriaxone Sodium 1 gm/ (Sodium Chloride) 50 mls @ 100 mls/hr IV Q24H [facility] Last Admin: 04/06/17 20:45 Dose: 100 mls/hr Fentanyl Patch Check 1 each TOP BID [facility] Last Admin: 04/07/17 08:09 Dose: Not Given Discontinued Medications Acetaminophen/Codeine Phosphate (Tylenol With Codeine No.3 300mg/30mg) 1 tab PO BEDTIME [facility] Last Admin: 04/06/17 01:12 Dose: Not Given Allopurinol (Zyloprim) 300 mg PO DAILY [facility] Last Admin: 04/06/17 11:17 Dose: Not Given Aspirin (Halfprin) 81 mg PO DAILY [facility] Last Admin: 04/06/17 11:16 Dose: Not Given Atorvastatin Calcium (Lipitor) 20 mg PO BEDTIME [facility] Last Admin: 04/06/17 00:45 Dose: Not Given Ceftriaxone Sodium (Rocephin) 1 gm IM Q24H [facility] Last Admin: 04/05/17 20:55 Dose: Not Given Ceftriaxone Sodium (Rocephin) 1 gm IV Q24H [facility] Last Admin: 04/05/17 21:24 Dose: 1 gm Cholecalciferol (Vitamin D3) 1,000 units PO BID [facility] Last Admin: 04/06/17 11:17 Dose: Not Given Duloxetine HCl (Cymbalta) 60 mg PO BEDTIME [facility] Sodium Chloride (Normal Saline) 1,000 mls @ 125 mls/hr IV ASDIRECTED [facility] Last Admin: 04/05/17 14:14 Dose: 999 mls/hr Sodium Chloride (Normal Saline) 1,000 mls @ 400 mls/hr IV ASDIRECTED [facility] Last Admin: 04/05/17 15:36 Dose: 400 mls/hr Sodium Chloride (Normal Saline) 1,000 mls @ 250 mls/hr IV ASDIRECTED [facility] Last Admin: 04/05/17 18:09 Dose: 250 mls/hr Sodium Chloride (Normal Saline) Confirm Administered Dose 50 mls @ as directed .ROUTE .STK-MED ONE Stop: 04/05/17 21:14 Last Admin: 04/05/17 21:26 Dose: 50 ml Potassium Chloride 20 meq/Lidocaine HCl 2 ml/ Sodium Chloride 112 mls @ 50 mls/ hr IV Q2H [facility] Stop: 04/06/17 15:59 Last Admin: 04/06/17 16:50 Dose: 50 mls/hr Insulin Detemir (Levemir) 14 unit SUBCUT BEDTIME [facility] Last Admin: 04/06/17 00:43 Dose: 14 units Insulin Detemir (Levemir) 14 unit SUBCUT BEDTIME [facility] Metformin HCl (Glucophage) 500 mg PO TIDMEALS [facility] Last Admin: 04/06/17 17:52 Dose: Not Given Metoprolol Tartrate (Lopressor) 12.5 mg PO BID [facility] Last Admin: 04/06/17 11:16 Dose: Not Given Fentanyl Patch Check 1 each TOP BID [facility] Last Admin: 04/06/17 09:18 Dose: Not Given Polyethylene Glycol (Miralax) 8.5 gm PO DAILY [facility] Last Admin: 04/06/17 11:17 Dose: Not Given Potassium Chloride (Potassium Chloride) 10 meq PO DAILY [facility] Last Admin: 09/21/17 11:17 Dose: Not Given Pregabalin (Lyrica) 75 mg PO BID [facility] Last Admin: 04/06/17 11:17 Dose: Not Given Raloxifene HCl (Evista) 60 mg PO DAILY [facility] Last Admin: 04/06/17 11:16 Dose: Not Given Ranitidine HCl (Zantac) 150 mg PO BID [facility] Last Admin: 04/06/17 11:17 Dose: Not Given - Exam General: Lethargic, Obtunded Lungs: Clear to Auscultation, Normal Respiratory Effort Cardiovascular: Regular Rate, Regular Rhythm Extremities: Normal Inspection, Normal Range of Motion, Non-Tender, No Pedal Edema, Normal Capillary Refill Peripheral Pulses: 1+: Radial (L), Radial (R) Skin: Warm, Dry Psy/Mental Status: Labile Mood - Problem List Review Problem List Initiated/Reviewed/Updated: Yes - My Orders Last 24 Hours: My Active Orders 04/06/17 14:13 SCD [Sequential Compression Device] [OM.PC] Routine 04/06/17 21:00 cefTRIAXone [Rocephin] 1 gm Sodium Chloride 0.9% [Normal Saline] 50 ml IV Q24H 04/07/17 09:00 Non-Formulary Medication [NF Drug] 1 each TOP BID 04/07/17 16:30 GLUCOSE POC LAB TO COLLECT [POC] QIDACANDBED 04/07/17 21:00 GLUCOSE POC LAB TO COLLECT [POC] QIDACANDBED - Plan Plan:: Assessment/Plan: Bronchitis, Acute: Held antibiotics. #2. DM II. Blood sugars have been good control not taking meds #3. History of Hypertension: 130's systolic #4. Dehydration: resolving. #5. History of HLD: Will hold Atorvastatin #6. History of GERD: Will DC Pepsid #7. History of contractures: #8. History of dementia: stable but progressive. #9. History of ruptured aortic aneurysm. STABLE #10. History of Nonrheumatic Aortic Valve stenosis. #11. History of chronic pain syndrome. Continue with Fentanyl Patch #12. History of Depression. Will DC Duloxetine #13. History of gout: Will DC Allopurinol I have called the family yesterday and waiting for direction on what their wishes are for care. If they want to be aggressive a feeding tube will be needed as she is not getting nutrition and unable to swallow. I feel she is a candidate for hospice. Will try to contract the family again.
[2017-04-07] MEDS: Levofloxacin/Dextrose 5%-Water 250 MG in Premix Bag 1 BAG IV SCH (19:35)
[2017-04-07] MEDS: cefTRIAXone 1 GM in Sodium Chloride 0.9% 50 ML IV SCH (20:30)
[2017-04-08] MEDS: Sodium Chloride 0.9% 1,000 ML IV SCH ×3 (04:04→20:02)
[2017-04-08] MEDS: FENTANYL PATCH CHECK TOP SCH ×2 (09:37→20:22)
--- NOTE | 2017-04-08 18:01 | PCM.PN ---
- General Info Date of Service: 04/08/17 - Review of Systems General: Reports: Weakness, Appetite HEENT: Reports: No Symptoms Pulmonary: Reports: No Symptoms Cardiovascular: Reports: No Symptoms Gastrointestinal: Reports: No Symptoms Genitourinary: Reports: No Symptoms Neurological: Reports: Weakness Psychiatric: Reports: Depression - Patient Data Vitals - Most Recent: Last Vital Signs Temp 97.1 F 04/08/17 17:55 Pulse 79 04/08/17 14:42 Resp 16 04/08/17 14:42 BP 125/75 04/08/17 14:42 Pulse Ox 98 04/08/17 14:42 Weight - Most Recent: 194 lb 0.003 oz I&O - Last 24 Hours: Intake & Output 04/08/17 04/08/17 04/08/17 06:59 14:59 22:59 Intake Total 5744 199 5833 Output Total 380 1050 Balance 720 -900 1654 Med Orders - Current: Current Medications Fentanyl (Duragesic) 25 mcg TOP Q72H [facility] Last Admin: 04/06/17 05:22 Dose: 25 mcg Levofloxacin/Dextrose 250 mg/ (Premix) 50 mls @ 50 mls/hr IV Q24H [facility] Last Admin: 04/07/17 19:35 Dose: 50 mls/hr Sodium Chloride (Normal Saline) 1,000 mls @ 125 mls/hr IV ASDIRECTED [facility] Last Admin: 04/08/17 12:10 Dose: 125 mls/hr Ceftriaxone Sodium 1 gm/ (Sodium Chloride) 50 mls @ 100 mls/hr IV Q24H [facility] Last Admin: 04/07/17 20:30 Dose: 100 mls/hr Fentanyl Patch Check 1 each TOP BID [facility] Last Admin: 04/08/17 09:37 Dose: Not Given Discontinued Medications Acetaminophen/Codeine Phosphate (Tylenol With Codeine No.3 300mg/30mg) 1 tab PO BEDTIME [facility] Last Admin: 04/06/17 01:12 Dose: Not Given Allopurinol (Zyloprim) 300 mg PO DAILY [facility] Last Admin: 04/06/17 11:17 Dose: Not Given Aspirin (Halfprin) 81 mg PO DAILY [facility] Last Admin: 04/06/17 11:16 Dose: Not Given Atorvastatin Calcium (Lipitor) 20 mg PO BEDTIME [facility] Last Admin: 04/06/17 00:45 Dose: Not Given Ceftriaxone Sodium (Rocephin) 1 gm IM Q24H [facility] Last Admin: 04/05/17 20:55 Dose: Not Given Ceftriaxone Sodium (Rocephin) 1 gm IV Q24H [facility] Last Admin: 04/05/17 21:24 Dose: 1 gm Cholecalciferol (Vitamin D3) 1,000 units PO BID [facility] Last Admin: 04/06/17 11:17 Dose: Not Given Duloxetine HCl (Cymbalta) 60 mg PO BEDTIME [facility] Sodium Chloride (Normal Saline) 1,000 mls @ 125 mls/hr IV ASDIRECTED [facility] Last Admin: 04/05/17 14:14 Dose: 999 mls/hr Sodium Chloride (Normal Saline) 1,000 mls @ 400 mls/hr IV ASDIRECTED [facility] Last Admin: 04/05/17 15:36 Dose: 400 mls/hr Sodium Chloride (Normal Saline) 1,000 mls @ 250 mls/hr IV ASDIRECTED [facility] Last Admin: 04/05/17 18:09 Dose: 250 mls/hr Sodium Chloride (Normal Saline) Confirm Administered Dose 50 mls @ as directed .ROUTE .STK-MED ONE Stop: 04/05/17 21:14 Last Admin: 04/05/17 21:26 Dose: 50 ml Potassium Chloride 20 meq/Lidocaine HCl 2 ml/ Sodium Chloride 112 mls @ 50 mls/ hr IV Q2H [facility] Stop: 04/06/17 15:59 Last Admin: 04/06/17 16:50 Dose: 50 mls/hr Insulin Detemir (Levemir) 14 unit SUBCUT BEDTIME [facility] Last Admin: 04/06/17 00:43 Dose: 14 units Insulin Detemir (Levemir) 14 unit SUBCUT BEDTIME [facility] Metformin HCl (Glucophage) 500 mg PO TIDMEALS [facility] Last Admin: 04/06/17 17:52 Dose: Not Given Metoprolol Tartrate (Lopressor) 12.5 mg PO BID [facility] Last Admin: 04/06/17 11:16 Dose: Not Given Fentanyl Patch Check 1 each TOP BID [facility] Last Admin: 04/06/17 09:18 Dose: Not Given Polyethylene Glycol (Miralax) 8.5 gm PO DAILY [facility] Last Admin: 04/06/17 11:17 Dose: Not Given Potassium Chloride (Potassium Chloride) 10 meq PO DAILY [facility] Last Admin: 04/06/17 11:17 Dose: Not Given Pregabalin (Lyrica) 75 mg PO BID [facility] Last Admin: 04/06/17 11:17 Dose: Not Given Raloxifene HCl (Evista) 60 mg PO DAILY [facility] Last Admin: 04/06/17 11:16 Dose: Not Given Ranitidine HCl (Zantac) 150 mg PO BID [facility] Last Admin: 04/06/17 11:17 Dose: Not Given - Exam General: Cooperative, No Acute Distress HEENT: Pupils Equal, Pupils Reactive, EOMI, Mucous Membr. Moist/[place] Neck: Supple Lungs: Clear to Auscultation, Normal Respiratory Effort Cardiovascular: Regular Rate, Regular Rhythm Extremities: Pedal Edema Peripheral Pulses: 1+: Radial (L), Radial (R) Psy/Mental Status: Labile Mood - Problem List Review Problem List Initiated/Reviewed/Updated: Yes - My Orders Last 24 Hours: My Active Orders 04/08/17 21:00 GLUCOSE POC LAB TO COLLECT [POC] QIDACANDBED - Plan Plan:: Assessment/Plan: Bronchitis, Acute resolved #2. DM II. Blood sugars have been good control not taking meds #3. History of Hypertension: 130's systolic #4. Dehydration: resolved. #5. History of HLD: Will hold Atorvastatin #6. History of GERD: Will DC Pepsid #7. History of contractures: #8. History of dementia: stable but progressive. #9. History of ruptured aortic aneurysm. STABLE #10. History of Nonrheumatic Aortic Valve stenosis. #11. History of chronic pain syndrome. Continue with Fentanyl Patch #12. History of Depression. Will DC Duloxetine #13. History of gout: Will DC Allopurinol I have called the will do comfort cares. Will do a hospice consults.
[2017-04-08] MEDS: Levofloxacin/Dextrose 5%-Water 250 MG in Premix Bag 1 BAG IV SCH (20:20)
[2017-04-08] MEDS: cefTRIAXone 1 GM in Sodium Chloride 0.9% 50 ML IV SCH (21:34)
[2017-04-09] MEDS: fentaNYL 25 MCG/HR Transdermal Patch TOP SCH (03:55)
[2017-04-09] MEDS: Sodium Chloride 0.9% 1,000 ML IV SCH (05:00)
[2017-04-09] MEDS: FENTANYL PATCH CHECK TOP SCH (08:44)
[2017-04-09 11:05] VITALS: BP 132/74
--- NOTE | 2017-04-09 12:31 | PCM.PN ---
- General Info Date of Service: 04/09/17 Subjective Update: She requests no feeding tube and is comfortable. Functional Status: Reports: Pain Controlled - Review of Systems General: Reports: Weakness HEENT: Reports: No Symptoms Pulmonary: Reports: No Symptoms Cardiovascular: Reports: No Symptoms Gastrointestinal: Reports: No Symptoms Genitourinary: Reports: No Symptoms Musculoskeletal: Reports: No Symptoms Skin: Reports: No Symptoms Neurological: Reports: No Symptoms Psychiatric: Reports: Other (lethargic) - Patient Data Vitals - Most Recent: Last Vital Signs Temp 97.4 F 04/09/17 11:04 Pulse 82 04/09/17 11:04 Resp 16 04/09/17 11:04 BP 132/74 04/09/17 11:04 Pulse Ox 96 04/09/17 11:04 Weight - Most Recent: 194 lb 0.003 oz I&O - Last 24 Hours: Intake & Output 04/08/17 04/09/17 04/09/17 22:59 06:59 14:59 Intake Total 1754 1179 962 Output Total 600 400 Balance 1154 779 962 Med Orders - Current: Current Medications Fentanyl (Duragesic) 25 mcg TOP Q72H [facility] Last Admin: 04/09/17 03:55 Dose: 25 mcg Levofloxacin/Dextrose 250 mg/ (Premix) 50 mls @ 50 mls/hr IV Q24H [facility] Last Admin: 04/08/17 20:20 Dose: 50 mls/hr Sodium Chloride (Normal Saline) 1,000 mls @ 125 mls/hr IV ASDIRECTED [facility] Last Admin: 04/09/17 05:00 Dose: 125 mls/hr Ceftriaxone Sodium 1 gm/ (Sodium Chloride) 50 mls @ 100 mls/hr IV Q24H [facility] Last Admin: 04/08/17 21:34 Dose: 100 mls/hr Fentanyl Patch Check 1 each TOP BID [facility] Last Admin: 04/09/17 08:44 Dose: Not Given Discontinued Medications Acetaminophen/Codeine Phosphate (Tylenol With Codeine No.3 300mg/30mg) 1 tab PO BEDTIME [facility] Last Admin: 04/06/17 01:12 Dose: Not Given Allopurinol (Zyloprim) 300 mg PO DAILY [facility] Last Admin: 04/06/17 11:17 Dose: Not Given Aspirin (Halfprin) 81 mg PO DAILY [facility] Last Admin: 04/06/17 11:16 Dose: Not Given Atorvastatin Calcium (Lipitor) 20 mg PO BEDTIME [facility] Last Admin: 04/06/17 00:45 Dose: Not Given Ceftriaxone Sodium (Rocephin) 1 gm IM Q24H [facility] Last Admin: 04/05/17 20:55 Dose: Not Given Ceftriaxone Sodium (Rocephin) 1 gm IV Q24H [facility] Last Admin: 04/05/17 21:24 Dose: 1 gm Cholecalciferol (Vitamin D3) 1,000 units PO BID [facility] Last Admin: 04/06/17 11:17 Dose: Not Given Duloxetine HCl (Cymbalta) 60 mg PO BEDTIME [facility] Sodium Chloride (Normal Saline) 1,000 mls @ 125 mls/hr IV ASDIRECTED [facility] Last Admin: 04/05/17 14:14 Dose: 999 mls/hr Sodium Chloride (Normal Saline) 1,000 mls @ 400 mls/hr IV ASDIRECTED [facility] Last Admin: 04/05/17 15:36 Dose: 400 mls/hr Sodium Chloride (Normal Saline) 1,000 mls @ 250 mls/hr IV ASDIRECTED [facility] Last Admin: 04/05/17 18:09 Dose: 250 mls/hr Sodium Chloride (Normal Saline) Confirm Administered Dose 50 mls @ as directed .ROUTE .STK-MED ONE Stop: 04/05/17 21:14 Last Admin: 04/05/17 21:26 Dose: 50 ml Potassium Chloride 20 meq/Lidocaine HCl 2 ml/ Sodium Chloride 112 mls @ 50 mls/ hr IV Q2H [facility] Stop: 04/06/17 15:59 Last Admin: 04/06/17 16:50 Dose: 50 mls/hr Insulin Detemir (Levemir) 14 unit SUBCUT BEDTIME [facility] Last Admin: 04/06/17 00:43 Dose: 14 units Insulin Detemir (Levemir) 14 unit SUBCUT BEDTIME [facility] Metformin HCl (Glucophage) 500 mg PO TIDMEALS [facility] Last Admin: 04/06/17 17:52 Dose: Not Given Metoprolol Tartrate (Lopressor) 12.5 mg PO BID [facility] Last Admin: 04/06/17 11:16 Dose: Not Given Fentanyl Patch Check 1 each TOP BID [facility] Last Admin: 04/06/17 09:18 Dose: Not Given Polyethylene Glycol (Miralax) 8.5 gm PO DAILY [facility] Last Admin: 04/06/17 11:17 Dose: Not Given Potassium Chloride (Potassium Chloride) 10 meq PO DAILY [facility] Last Admin: 04/06/17 11:17 Dose: Not Given Pregabalin (Lyrica) 75 mg PO BID [facility] Last Admin: 04/06/17 11:17 Dose: Not Given Raloxifene HCl (Evista) 60 mg PO DAILY [facility] Last Admin: 04/06/17 11:16 Dose: Not Given Ranitidine HCl (Zantac) 150 mg PO BID [facility] Last Admin: 04/06/17 11:17 Dose: Not Given - Exam General: Cooperative, No Acute Distress HEENT: Pupils Equal Neck: Supple Lungs: Clear to Auscultation, Normal Respiratory Effort Cardiovascular: Regular Rate, Regular Rhythm GI/Abdominal Exam: Normal Bowel Sounds, Soft, Non-Tender, No Organomegaly, No Distention, No Abnormal Bruit, No Mass, Pelvis Stable Extremities: Pedal Edema Peripheral Pulses: 1+: Radial (L), Radial (R) Skin: Warm, Dry, Intact - Problem List Review Problem List Initiated/Reviewed/Updated: Yes - My Orders Last 24 Hours: My Active Orders 04/09/17 12:20 CBC WITH AUTO DIFF [HEME] Routine COMPREHENSIVE METABOLIC PN,CMP [CHEM] Routine 04/09/17 16:30 GLUCOSE POC LAB TO COLLECT [POC] QIDACANDBED 04/09/17 21:00 GLUCOSE POC LAB TO COLLECT [POC] QIDACANDBED - Plan Plan:: Assessment/Plan: Bronchitis, Acute --resolved #2. DM II. Blood sugars have been good control without taking meds #3. History of Hypertension: 130's systolic #4. Dehydration: resolved. #5. History of HLD: Will hold Atorvastatin #6. History of GERD: Will DC Pepsid #7. History of contractures: #8. History of dementia: stable but progressive. #9. History of ruptured aortic aneurysm. STABLE #10. History of Nonrheumatic Aortic Valve stenosis. #11. History of chronic pain syndrome. Continue with Fentanyl Patch #12. History of Depression. Will DC Duloxetine #13. History of gout: Will DC Allopurinol I have called the will do comfort cares. Will do a hospice consults. Plan to send [facility].
--- NOTE | 2017-04-09 12:35 | PCM.DCSUM1 ---
Discharge Summary - Hospital Course Brief History: She has been in the snf and had bronchitis and given Cipro for 1 week. She has had no improvement and came into the ER and I was called for an admission. She has been bed ridden for many months. She had a elevated WBC with an infiltrate possibly in her lung. - Discharge Data Discharge Date: 04/09/17 Discharge Disposition: DC/Tfer to [facility] 03 Condition: Poor - Patient Summary/Data Hospital Course: She was dehydrated when she came in and was given fluid by IV and antibiotics. initially she had no verbal response but at the end of the stay she was verbal and requested no feeding tube as she is not consuming enough food to maintain her body condition. Antibiotics were given and the WBC did drop. She was a very difficult blood draw. She is being discharged with the condition of hospice care pending once the family decides. Blood work is pending at the time of discharge and had to draw blood through the IV site. - Patient Instructions Diet: Diabetic Diet Activity: Bedrest Notify Provider of: Fever - Discharge Plan Home Medications: Home Meds Potassium Chloride 10 meq PO DAILY 04/10/13 [History] Pregabalin [Lyrica] 75 mg PO BID 04/10/13 [History] Acetaminophen with Codeine [Tylenol with Codeine #3 Tablet] 1 tab PO BEDTIME [History] Ranitidine [Zantac] 150 mg PO BID 04/05/17 [History] fentaNYL [Duragesic] 25 mcg TOP Q72H 04/05/17 [History] fentaNYL [Duragesic] 25 mcg TOP Q72H patch 04/09/17 [Rx] Forms: ED Department Discharge Referrals: PCP,None [Ordering Only Provider] - - Discharge Summary/Plan Comment DC Time >30 min.: No - Patient Data Vitals - Most Recent: Last Vital Signs Temp 97.4 F 04/09/17 11:04 Pulse 82 04/09/17 11:04 Resp 16 04/09/17 11:04 BP 132/74 04/09/17 11:04 Pulse Ox 96 04/09/17 11:04 Weight - Most Recent: 194 lb 0.003 oz I&O - Last 24 hours: Intake & Output 04/08/17 04/09/17 04/09/17 22:59 06:59 14:59 Intake Total 1754 1179 962 Output Total 600 400 Balance 1154 779 962 Med Orders - Current: Current Medications Fentanyl (Duragesic) 25 mcg TOP Q72H [facility] Last Admin: 04/09/17 03:55 Dose: 25 mcg Levofloxacin/Dextrose 250 mg/ (Premix) 50 mls @ 50 mls/hr IV Q24H [facility] Last Admin: 04/08/17 20:20 Dose: 50 mls/hr Sodium Chloride (Normal Saline) 1,000 mls @ 125 mls/hr IV ASDIRECTED [facility] Last Admin: 04/09/17 05:00 Dose: 125 mls/hr Ceftriaxone Sodium 1 gm/ (Sodium Chloride) 50 mls @ 100 mls/hr IV Q24H [facility] Last Admin: 04/08/17 21:34 Dose: 100 mls/hr Fentanyl Patch Check 1 each TOP BID [facility] Last Admin: 04/09/17 08:44 Dose: Not Given Discontinued Medications Acetaminophen/Codeine Phosphate (Tylenol With Codeine No.3 300mg/30mg) 1 tab PO BEDTIME [facility] Last Admin: 04/06/17 01:12 Dose: Not Given Allopurinol (Zyloprim) 300 mg PO DAILY [facility] Last Admin: 04/06/17 11:17 Dose: Not Given Aspirin (Halfprin) 81 mg PO DAILY [facility] Last Admin: 04/06/17 11:16 Dose: Not Given Atorvastatin Calcium (Lipitor) 20 mg PO BEDTIME [facility] Last Admin: 04/06/17 00:45 Dose: Not Given Ceftriaxone Sodium (Rocephin) 1 gm IM Q24H [facility] Last Admin: 04/05/17 20:55 Dose: Not Given Ceftriaxone Sodium (Rocephin) 1 gm IV Q24H [facility] Last Admin: 04/05/17 21:24 Dose: 1 gm Cholecalciferol (Vitamin D3) 1,000 units PO BID [facility] Last Admin: 04/06/17 11:17 Dose: Not Given Duloxetine HCl (Cymbalta) 60 mg PO BEDTIME [facility] Sodium Chloride (Normal Saline) 1,000 mls @ 125 mls/hr IV ASDIRECTED [facility] Last Admin: 04/05/17 14:14 Dose: 999 mls/hr Sodium Chloride (Normal Saline) 1,000 mls @ 400 mls/hr IV ASDIRECTED [facility] Last Admin: 04/05/17 15:36 Dose: 400 mls/hr Sodium Chloride (Normal Saline) 1,000 mls @ 250 mls/hr IV ASDIRECTED [facility] Last Admin: 04/05/17 18:09 Dose: 250 mls/hr Sodium Chloride (Normal Saline) Confirm Administered Dose 50 mls @ as directed .ROUTE .STK-MED ONE Stop: 04/05/17 21:14 Last Admin: 04/05/17 21:26 Dose: 50 ml Potassium Chloride 20 meq/Lidocaine HCl 2 ml/ Sodium Chloride 112 mls @ 50 mls/ hr IV Q2H [facility] Stop: 04/06/17 15:59 Last Admin: 04/06/17 16:50 Dose: 50 mls/hr Insulin Detemir (Levemir) 14 unit SUBCUT BEDTIME [facility] Last Admin: 04/06/17 00:43 Dose: 14 units Insulin Detemir (Levemir) 14 unit SUBCUT BEDTIME [facility] Metformin HCl (Glucophage) 500 mg PO TIDMEALS [facility] Last Admin: 04/06/17 17:52 Dose: Not Given Metoprolol Tartrate (Lopressor) 12.5 mg PO BID [facility] Last Admin: 04/06/17 11:16 Dose: Not Given Fentanyl Patch Check 1 each TOP BID [facility] Last Admin: 04/06/17 09:18 Dose: Not Given Polyethylene Glycol (Miralax) 8.5 gm PO DAILY [facility] Last Admin: 04/06/17 11:17 Dose: Not Given Potassium Chloride (Potassium Chloride) 10 meq PO DAILY [facility] Last Admin: 04/06/17 11:17 Dose: Not Given Pregabalin (Lyrica) 75 mg PO BID [facility] Last Admin: 04/06/17 11:17 Dose: Not Given Raloxifene HCl (Evista) 60 mg PO DAILY [facility] Last Admin: 04/06/17 11:16 Dose: Not Given Ranitidine HCl (Zantac) 150 mg PO BID [facility] Last Admin: 04/06/17 11:17 Dose: Not Given *Q Meaningful Use (DIS) - VTE *Q VTE Criteria *Q: - Stroke *Q Stroke Criteria *Q: - AMI *Q AMI Criteria *Q:
== END 2017-04-09 13:00 | DRG 202 ==
LOC: JP.ED 12:56 → JP.2SS 18:16
PROVIDERS: ADMIT Internal Medicine; ATTEND Internal Medicine
DX: J20.9 Acute bronchitis, unspecified (principal); E87.0 Hyperosmolality and hypernatremia; E86.0 Dehydration; I10 Essential (primary) hypertension; E11.9 Type 2 diabetes mellitus without complications; Z74.01 Bed confinement status; F03.90 Unspecified dementia, unspecified severity, without behavioral disturbance, psychotic disturbance, mood disturbance, and anxiety; F32.9 Major depressive disorder, single episode, unspecified; K21.9 Gastro-esophageal reflux disease without esophagitis; R50.9 Fever, unspecified; M19.90 Unspecified osteoarthritis, unspecified site; M54.9 Dorsalgia, unspecified; G89.29 Other chronic pain; Z86.73 Personal history of transient ischemic attack (TIA), and cerebral infarction without residual deficits; E78.5 Hyperlipidemia, unspecified; Z95.2 Presence of prosthetic heart valve; Z87.891 Personal history of nicotine dependence; Z66 Do not resuscitate; Z51.5 Encounter for palliative care; Z79.82 Long term (current) use of aspirin; Z79.4 Long term (current) use of insulin; Z88.8 Allergy status to other drugs, medicaments and biological substances; M10.9 Gout, unspecified
CPT/HCPCS: 36415; 36600; 71010 ×2; 80053; 81001; 82803; 82962; 83605; 85025; 87040 ×2; 87086; 96360; 96361; 99285; J7040 ×3; 80048; A9270-GY; J0696; J1956; J3480; J7030; J7050